=== PATIENT | female | born 1995 | race Caucasian/White ===

== ENCOUNTER 2023-11-02 22:24 | Emergency (ER) | payer OTHER ==
[~2023-11-02] VITALS: Ht 157.4 cm; Wt 63.0 kg
[2023-11-02] MEDS ORDERED: Lidocaine Hydrochloride 30 ML VIAL SC ONE (23:15)
[2023-11-02] MEDS ORDERED: ACETAMINOPHEN 325 MG TAB PO ONE (23:30)
[2023-11-02] MEDS ORDERED: Lidocaine Hydrochloride 5 ML AMP ONE (23:30)
[2023-11-03] MEDS ORDERED: Ketorolac Tromethamine 30 MG/ML VIAL IM ONE (00:40)
== END 2023-11-03 01:36 | disposition home or self-care (01) ==
LOC: ED 22:24
DX: S63.273A Dislocation of unspecified interphalangeal joint of left middle finger, initial encounter (principal); F41.9 Anxiety disorder, unspecified; Z98.890 Other specified postprocedural states; W23.0XXA Caught, crushed, jammed, or pinched between moving objects, initial encounter; Y93.23 Activity, snow (alpine) (downhill) skiing, snowboarding, sledding, tobogganing and snow tubing; Y92.89 Other specified places as the place of occurrence of the external cause; Y99.8 Other external cause status